=== PATIENT | female | born 1945 | race Two or more races ===

== ENCOUNTER 2019-12-27 11:39 | Outpatient (CLI) | payer OTHER | END 2019-12-27 12:20 | disposition home or self-care (01) | LOC: OFIC 805 11:39 | PROVIDERS: ATTEND Otolaryngology | DX: R42 Dizziness and giddiness (principal); L30.8 Other specified dermatitis; H68.101 Unspecified obstruction of Eustachian tube, right ear ==

== ENCOUNTER → 2020-02-12 | Outpatient (CLI) | payer OTHER | END | disposition home or self-care (01) | LOC: OFIC 805 01-22 11:00 | PROVIDERS: ATTEND Otolaryngology | DX: R42 Dizziness and giddiness (principal) ==